=== PATIENT | male | born 1940 | race Caucasian/White ===

== ENCOUNTER 2018-03-09 10:51 | Emergency (ER) | payer MEDICARE ==
[2018-03-09 10:51] VITALS: BMI 28.3
[2018-03-09 10:57] VITALS: O2SAT 98
[2018-03-09] MEDS ORDERED: Dexamethasone 4 mg/1 ml IM STA (11:41)
[2018-03-09] MEDS ORDERED: Lidocaine 5% Patch TD STA (11:41)
--- NOTE | 2018-03-09 11:41 | C.PDOC ---
History Of Present Illness 78 y/o male presents to ED with c/o left lower back radiating to left leg for 1 month associated with tingling to left leg. Patient states he has difficulty walking and sitting secondary to pain. Patient had MRI 3 weeks ago that showed Broken discs and saw PMD yesterday, given medication with no improvement. Patient denies bowel/bladder incontinence, abdominal pain, numbness, fever, chills or any other complaints at this time. Time Seen by Provider: 03/09/18 11:23 Chief Complaint (Nursing): Back Pain History Per: Patient, Family History/Exam Limitations: no limitations Onset/Duration Of Symptoms: Days Current Symptoms Are (Timing): Still Present Quality Of Discomfort: "Pain" Past Medical History Reviewed: Historical Data, Nursing Documentation, Vital Signs Vital Signs: Last Vital Signs Temp 97.9 F 03/09/18 10:55 Pulse 90 03/09/18 10:55 Resp 16 03/09/18 10:55 BP 155/86 H 03/09/18 10:55 Pulse Ox 98 03/09/18 11:48 - Medical History PMH: Benign Prostatic Hyperplasia, HTN, Hypercholesterolemia, Kidney Stones, Chronic Kidney Disease Surgical History: Endoscopy - [facility] Procedures CLOSED ENDOSCOPIC BIOPSY OF LARGE INTESTINE (12/27/13) ESOPHAGOGASTRODUODENOSCOPY [EGD] W/CLOSED BIOPSY (12/27/13) Family History: States: No Known Family Hx - Social History Hx Tobacco Use: No Hx Alcohol Use: No Hx Substance Use: No - Immunization History Hx Tetanus Toxoid Vaccination: No Hx Influenza Vaccination: No Hx Pneumococcal Vaccination: No Review Of Systems Gastrointestinal: Negative for: Nausea, Vomiting, Abdominal Pain Genitourinary: Negative for: Dysuria, Incontinence, Hematuria Musculoskeletal: Positive for: Back Pain Skin: Negative for: Rash Neurological: Negative for: Weakness, Numbness Physical Exam - Physical Exam Appears: Non-toxic, No Acute Distress Skin: Warm, Dry, No Rash Head: Atraumatic, Normacephalic Eye(s): bilateral: Normal Inspection Oral Mucosa: Moist Neck: Supple Gastrointestinal/Abdominal: Soft, No Tenderness, No Guarding, No Rebound Back: No CVA Tenderness, Straight Leg Raising (at 45 degrees), Other (left side paralumbar tenderness) Extremity: Normal ROM, Capillary Refill (<2 seconds) Neurological/Psych: Oriented x3, Normal Motor, Normal Sensation ED Course And Treatment O2 Sat by Pulse Oximetry: 98 (RA) Pulse Ox Interpretation: Normal Disposition - Disposition Referrals: Gonzalo Garcia MD [Staff Provider] - Disposition: HOME/ ROUTINE Disposition Time: 12:44 Condition: STABLE Additional Instructions: Follow up with the medical doctor within 1-2 days. Return if worsened. Prescriptions: Cyclobenzaprine [Flexeril] 5 mg PO TID #21 tab Lidocaine 5% [Lidoderm] 1 each TP DAILY #10 patch Naproxen 375 mg PO BID #20 tablet Instructions: Sciatica Forms: [employer] (Norwegian) Print Language: [place] RICAN - Clinical Impression Clinical Impression: Sciatica - PA / [employer] / Resident Statement MD/DO has reviewed & agrees with the documentation as recorded. - Scribe Statement The provider has reviewed the documentation as recorded by the Christianibmaria e Jones All medical record entries made by the Christianibmaria e were at my direction and personally dictated by me. I have reviewed the chart and agree that the record accurately reflects my personal performance of the history, physical exam, medical decision making, and the department course for this patient. I have also personally directed, reviewed, and agree with the discharge instructions and disposition.
[2018-03-09] MEDS ORDERED: Dexamethasone 4 mg/1 ml ONE (12:00)
[2018-03-09] MEDS ORDERED: Lidocaine 5% Patch TD ONE (12:01)
[2018-03-09 13:04] VITALS: BP 114/68; PULSE 84; RESP 18; TEMP 98.2
== END 2018-03-09 13:00 | disposition home or self-care (01) ==
LOC: C.ER 10:51
DX: M54.30 Sciatica, unspecified side (principal)
CPT/HCPCS: 96372; 99284; J1100; J1885

== ENCOUNTER 2018-12-15 05:42 | Inpatient (IN) | payer MEDICARE ==
[2018-12-15 05:43] VITALS: BMI 28.3
[2018-12-15 06:46] LABS: BASO % 0.7 % (0.0-2.0); EOS # 0.1 K/uL (0.0-0.7); HEMOGLOBIN 14.7 g/dL (12.0-18.0); LYMPH # 1.2 K/uL (1.0-4.3); LYMPH % 32.5 % (20.0-40.0); MEAN CORPUSCULAR HEMOGLOBIN 29.5 pg (27.0-31.0); MEAN CORPUSCULAR HGB CONC 33.2 g/dL (33.0-37.0); MEAN PLATELET VOLUME 10.3 fL (7.2-11.7); MONO # 0.4 K/uL (0.0-0.8); MONO % 11.6 % (0.0-10.0); NEUT # 1.9 K/uL (1.8-7.0); NEUT % 53.2 % (50.0-75.0); NRBC % 0.1 % (0.0-2.0); RBC 4.99 Mil/uL (4.40-5.90); RED CELL DISTRIBUTION WIDTH 14.7 % (11.5-14.5); WHITE BLOOD COUNT 3.7 K/uL (4.8-10.8)
--- NOTE | 2018-12-15 06:47 | C.PDOC ---
History Of Present Illness Patient presents to ED c/o mild epigastric pain and 3 episodes of bloody stools that began overnight. Initial BM was dark, but then subsquent BMs were bright red. Patient denies prior rectal bleeding or h/o stomach/intestinal problems. He also denies chest pain, SOB, palpitations, fever, dysuria/hematuria, nausea/vomiting. Patient also denies use of pepto bismol, iron. Time Seen by Provider: 12/15/18 05:48 Chief Complaint (Nursing): GI Problem History Per: Patient, Family History/Exam Limitations: no limitations Severity: Mild Past Medical History Reviewed: Historical Data, Nursing Documentation, Vital Signs Vital Signs: Last Vital Signs Temp 97.7 F 12/15/18 05:49 Pulse 85 12/15/18 05:49 Resp 20 12/15/18 05:49 BP 173/89 H 12/15/18 05:49 Pulse Ox 98 12/15/18 05:49 Primary Care Provider: Gonzalo Garcia - Medical History PMH: Benign Prostatic Hyperplasia, HTN, Hypercholesterolemia, Kidney Stones, Chronic Kidney Disease Surgical History: Endoscopy - [facility] Procedures CLOSED ENDOSCOPIC BIOPSY OF LARGE INTESTINE (12/27/13) ESOPHAGOGASTRODUODENOSCOPY [EGD] W/CLOSED BIOPSY (12/27/13) Family History: States: No Known Family Hx - Social History Hx Tobacco Use: No Hx Alcohol Use: No Hx Substance Use: No - Immunization History Hx Tetanus Toxoid Vaccination: No Hx Influenza Vaccination: No Hx Pneumococcal Vaccination: No Review Of Systems Constitutional: Negative for: Fever, Chills Cardiovascular: Negative for: Chest Pain, Palpitations Respiratory: Negative for: Shortness of Breath Gastrointestinal: Positive for: Abdominal Pain, Melena, Hematochezia. Negative for: Nausea, Vomiting, Diarrhea Genitourinary: Negative for: Dysuria Skin: Negative for: Rash Physical Exam - Physical Exam Appears: Well, Non-toxic, No Acute Distress Skin: Normal Color, Warm, Dry, No Pale, No Rash Head: Normacephalic Oral Mucosa: Moist Cardiovascular: Rhythm Regular Respiratory: Normal Breath Sounds, No Rales, No Rhonchi, No Wheezing Gastrointestinal/Abdominal: Normal Exam, Bowel Sounds, Soft, No Tenderness Rectal: Rectal Tone, Blood Streaked Stool, No Hemorrhoids, No Mass, No Tenderness Extremity: Normal ROM, No Deformity Neurological/Psych: Oriented x3, Normal Speech, Normal Cognition ED Course And Treatment - Laboratory Results Result Diagrams: 12/15/18 06:37 ECG: Interpreted By Me, Viewed By Me (NSR 86 bpm, normal axis, no acute ST/T wave changes) ECG Interpretation: No Acute Changes O2 Sat by Pulse Oximetry: 98 (RA) Pulse Ox Interpretation: Normal Progress Note: Blood work ordered and reviewed. Patient given IV protonix. Disposition - Disposition Disposition Time: 07:00 Condition: STABLE Forms: [employer] (Bengali) - Clinical Impression Clinical Impression: Rectal bleeding, Epigastric abdominal pain Physician Patient Turnover Patient Signed Over To: Delmy Rosa Handoff Comments: blood work, SFOB, reassessment
[2018-12-15 06:49] LABS: PARTIAL THROMBOPLASTIN TIME 31.5 SECONDS (21-34); PROTHROMBIN TIME 10.6 SECONDS (9.7-12.2)
[2018-12-15] MEDS ORDERED: Sodium Chloride 0.9% 500 ML IV ONE (06:54)
[2018-12-15 07:07] LABS: ALB/GLOB RATIO 1.5 (1.0-2.1); ALBUMIN 4.2 g/dL (3.5-5.0); ALT/SGPT 35 U/L (21-72); AST/SGOT 27 U/L (17-59); BLOOD UREA NITROGEN 12 mg/dL (9-20); CALCIUM 9.4 mg/dl (8.6-10.4); GFR NON-AFRICAN AMERICAN > 60; LIPASE 189 U/L (23-300)
[2018-12-15] MEDS ORDERED: Sodium Chloride 0.9% 1,000 ML ONE (07:18)
[2018-12-15] MEDS ORDERED: Pneumococcal 23-Valent Vaccine IM ONE (13:08)
[2018-12-15] MEDS: (Novolin R) Insulin Human Regular 100 units/ml vial SC SCH ×2 (17:43→21:28)
[2018-12-15] MEDS ORDERED: Lidocaine 5% Patch TD PRN (18:04)
[2018-12-15 18:54] LABS: HEMOGLOBIN 13.3 g/dL (12.0-18.0); MEAN CELL VOLUME 87.3 fL (80.0-94.0); MEAN CORPUSCULAR HEMOGLOBIN 29.3 pg (27.0-31.0); MEAN CORPUSCULAR HGB CONC 33.6 g/dL (33.0-37.0); MEAN PLATELET VOLUME 9.8 fL (7.2-11.7); RBC 4.52 Mil/uL (4.40-5.90); RED CELL DISTRIBUTION WIDTH 14.8 % (11.5-14.5); WHITE BLOOD COUNT 4.5 K/uL (4.8-10.8)
[2018-12-15] MEDS: Rosuvastatin Calcium 2.5 mg Tab PO SCH (22:14)
[2018-12-15] MEDS: Oxycodone/Acetaminophen 5/325 mg Tab PO SCH (22:18)
--- NOTE | 2018-12-15 22:29 | CP.PCM.HP ---
Present on Admission - Present on Admission Any Indicators Present on Admission: No Past Patient History - Past Medical History & Family History Past Medical History?: Yes - Past Social History Smoking Status: Never Smoked - CARDIAC Hx Hypercholesterolemia: Yes Hx Hypertension: Yes - PULMONARY Hx Respiratory Disorders: No - NEUROLOGICAL Hx Neurological Disorder: No - HEENT Hx HEENT Problems: No - RENAL Hx Chronic Kidney Disease: Yes Hx Kidney Stones: Yes - ENDOCRINE/METABOLIC Hx Endocrine Disorders: Yes Hx Diabetes Mellitus Type 2: Yes - HEMATOLOGICAL/ONCOLOGICAL Hx Blood Disorders: No - INTEGUMENTARY Hx Dermatological Problems: No - MUSCULOSKELETAL/RHEUMATOLOGICAL Hx Falls: No - GASTROINTESTINAL Hx Gastrointestinal Disorders: Yes Hx Gastroesophageal Reflux: Yes (HEARTBURN) - GENITOURINARY/GYNECOLOGICAL Hx Genitourinary Disorders: Yes Other/Comment: ENLARGED PROSTATE - PSYCHIATRIC Hx Substance Use: No - SURGICAL HISTORY Other/Comment: prostate surgery x2 - ANESTHESIA Hx Anesthesia: Yes Hx Anesthesia Reactions: No Hx Malignant Hyperthermia: No Meds Allergies/Adverse Reactions: Allergies Allergy/AdvReac Type Severity Reaction Status Date / Time No Known Allergies Allergy Verified 12/15/18 05:57 Results - Vital Signs Recent Vital Signs: Last Vital Signs Temp 97.9 F 12/15/18 15:00 Pulse 76 12/15/18 15:00 Resp 20 12/15/18 15:00 BP 123/69 12/15/18 15:00 Pulse Ox 97 12/15/18 15:00 - Labs Result Diagrams: 12/15/18 18:51 12/15/18 06:37 Labs: Laboratory Results - last 24 hr 12/15/18 12/15/18 12/15/18 06:37 06:37 06:37 WBC 3.7 L D RBC 4.99 Hgb 14.7 Hct 44.4 MCV 89.0 MCH 29.5 MCHC 33.2 RDW 14.7 H Plt Count 232 MPV 10.3 Neut % (Auto) 53.2 Lymph % (Auto) 32.5 [place] % (Auto) 11.6 H Eos % (Auto) 2.0 Baso % (Auto) 0.7 Neut # (Auto) 1.9 Lymph # (Auto) 1.2 [place] # (Auto) 0.4 Eos # (Auto) 0.1 Baso # (Auto) 0.0 PT 10.6 INR 1.0 APTT 31.5 Sodium 137 Potassium 3.8 Chloride 101 Carbon Dioxide 28 Anion Gap 11 BUN 12 Creatinine 0.6 L Est GFR ( Amer) > 60 Est GFR (Non-Af Amer) > 60 POC Glucose (mg/dL) Random Glucose 137 H Calcium 9.4 Total Bilirubin 0.7 AST 27 ALT 35 Alkaline Phosphatase 71 Total Protein 6.9 Albumin 4.2 Globulin 2.7 Albumin/Globulin Ratio 1.5 Lipase 189 Carcinoembryonic Ag 1.9 Stool Occult Blood Blood Type Antibody Screen 12/15/18 12/15/18 12/15/18 06:37 07:22 15:54 WBC RBC Hgb Hct MCV MCH MCHC RDW Plt Count MPV Neut % (Auto) Lymph % (Auto) [place] % (Auto) Eos % (Auto) Baso % (Auto) Neut # (Auto) Lymph # (Auto) [place] # (Auto) Eos # (Auto) Baso # (Auto) PT INR APTT Sodium Potassium Chloride Carbon Dioxide Anion Gap BUN Creatinine Est GFR ( Amer) Est GFR (Non-Af Amer) POC Glucose (mg/dL) 280 H Random Glucose Calcium Total Bilirubin AST ALT Alkaline Phosphatase Total Protein Albumin Globulin Albumin/Globulin Ratio Lipase Carcinoembryonic Ag Stool Occult Blood Positive H Blood Type O POSITIVE Antibody Screen Negative 12/15/18 12/15/18 18:51 21:19 WBC 4.5 L RBC 4.52 Hgb 13.3 Hct 39.4 MCV 87.3 MCH 29.3 MCHC 33.6 RDW 14.8 H Plt Count 217 MPV 9.8 Neut % (Auto) Lymph % (Auto) [place] % (Auto) Eos % (Auto) Baso % (Auto) Neut # (Auto) Lymph # (Auto) [place] # (Auto) Eos # (Auto) Baso # (Auto) PT INR APTT Sodium Potassium Chloride Carbon Dioxide Anion Gap BUN Creatinine Est GFR ( Amer) Est GFR (Non-Af Amer) POC Glucose (mg/dL) 86 Random Glucose Calcium Total Bilirubin AST ALT Alkaline Phosphatase Total Protein Albumin Globulin Albumin/Globulin Ratio Lipase Carcinoembryonic Ag Stool Occult Blood Blood Type Antibody Screen
[2018-12-16] MEDS: Oxycodone/Acetaminophen 5/325 mg Tab PO SCH ×3 (07:14→21:44)
[2018-12-16] MEDS: (Novolin R) Insulin Human Regular 100 units/ml vial SC SCH ×4 (07:48→21:33)
[2018-12-16] MEDS ORDERED: Lactated Ringer's 1,000 ML IV ONE (09:54)
[2018-12-16] MEDS ORDERED: Etomidate 20 mg/10ml Inj IV ONE ×2 (09:58→10:02)
[2018-12-16] MEDS: Lidocaine 5% Patch TD SCH (10:20)
--- NOTE | 2018-12-16 11:16 | HP ---
CHIEF COMPLAINT: Epigastric pain. HISTORY OF PRESENT ILLNESS: This is a 78-year-old male well known to me with history of type 2 diabetes, hypertension, hyperlipidemia. He also had history of lumbar disk disease. He came in because of abdominal pain, nausea, vomiting, and bleeding per rectum, which is bright red blood. He has perianal itching and pain and irritation. He has nausea. He has epigastric discomfort. He denies any diarrhea. He denied any constipation. He denied any fever, chills, or rigors. He denies any dysuria, hematuria, or polyuria. He denies any polyuria, polydipsia, and polyphagia. He denies any cough, sore throat, runny nose. He is on baby aspirin. He is on . He denies any joint pain. He has back pain. He has tingling and numbness in the legs. There is no history of skin rash, itchy eyes, or itchy nose. He denies any history of sneezing. The patient's fecal occult blood was positive in the emergency room and the patient was hospitalized. CURRENT MEDICATIONS: Omeprazole, Lidoderm patches, allopurinol, Lyrica, Zestril, Proscar, , Percocet, Pravachol. SOCIAL HISTORY: Nonsmoker, non-EtOH user. PAST MEDICAL HISTORY: Lumbar disk disease, type 2 diabetes, hypertension, hyperlipidemia. PHYSICAL EXAMINATION: GENERAL: An elderly male in no acute distress. Pleasant mood. VITAL SIGNS: Blood pressure 119/71, pulse 82, respiratory rate 12, temperature 97.9. SKIN: No rashes. No bruises. No purpura. No petechiae. No ecchymosis. HEENT: Atraumatic and normocephalic. Negative pallor. Negative jaundice. Extraocular movements are intact. NECK: Supple. No JVD. No lymph node. No thyromegaly. No carotid bruit. CHEST WALL: Bilaterally symmetrical expansion. No tenderness. No deformity. LUNGS: Clear. No rales. No rhonchi. CARDIOVASCULAR SYSTEM: PMI not localized. S1 and S2, regular. No heave, no thrill. ABDOMEN: Soft and nontender. Bowel sounds are positive. RECTAL: No masses. Positive occult blood. EXTREMITIES: No clubbing,cyanosis, or edema. CENTRAL NERVOUS SYSTEM: Awake, alert, and oriented x3. Cranial nerves II through XII are normal. Power is 5/5 x4. Plantars are downgoing. ASSESSMENT: 1. Gastrointestinal bleed, most likely it is a lower gastrointestinal bleeding with bright red blood per rectum, which is in smaller amount, could be colon polyp versus angiodysplasia versus small bowel ulcers versus hemorrhoids. 2. Hypertension. 3. Type 2 diabetes. 4. Lumbar disk disease. PLAN: Admit. CBC and GI evaluation. Monitor patient. Gonzalo Garcia MD
[2018-12-16] MEDS ORDERED: Peg-Electrolyte Oral Soln 4L (Golytely) PO ONE (13:00)
[2018-12-16] MEDS ORDERED: Bisacodyl 5mg EC Tab PO ONE (17:00)
[2018-12-16] MEDS: Rosuvastatin Calcium 2.5 mg Tab PO SCH (22:22)
--- NOTE | 2018-12-16 22:50 | CP.PCM.PN ---
Subjective - Date & Time of Evaluation Date of Evaluation: 12/16/18 Time of Evaluation: 10:40 - Subjective Subjective: dict Objective - Vital Signs/Intake and Output Vital Signs (last 24 hours): Temp Pulse Resp BP Pulse Ox 97.9 F 73 20 109/69 96 12/16/18 15:00 12/16/18 15:00 12/16/18 15:00 12/16/18 15:00 12/16/18 15:00 - Medications Medications: Current Medications Allopurinol (Zyloprim) 300 mg PO DAILY [facility] Last Admin: 12/16/18 11:50 Dose: 300 mg Finasteride (Proscar) 5 mg PO DAILY [facility] Last Admin: 12/16/18 11:51 Dose: 5 mg Insulin Human Regular (Novolin R) 0 unit SC [facility]; Protocol Last Admin: 12/16/18 21:33 Dose: Not Given Lidocaine (Lidoderm) 1 ea TD DAILY [facility] Last Admin: 12/16/18 10:20 Dose: Not Given Lisinopril (Zestril) 40 mg PO DAILY [facility] Last Admin: 12/16/18 11:51 Dose: 40 mg Metoclopramide HCl (Reglan) 5 mg IVP Q6H [facility] Stop: 12/19/18 11:01 Last Admin: 12/16/18 22:22 Dose: 5 mg Oxycodone/Acetaminophen (Percocet 5/325 Mg Tab) 1 tab PO Q8 [facility] Stop: 12/18/18 22:01 Last Admin: 12/16/18 21:44 Dose: Not Given Pantoprazole Sodium (Protonix Inj) 40 mg IVP DAILY [facility] Last Admin: 12/16/18 11:52 Dose: 40 mg Pneumococcal Polyvalent Vaccine (Pneumovax 23 Vaccine) 0.5 ml IM .ONCE ONE Stop: 12/17/18 10:01 Pregabalin (Lyrica) 50 mg PO HS [facility] Last Admin: 12/16/18 21:44 Dose: Not Given Rosuvastatin Calcium (Crestor) 2.5 mg PO HS [facility] Last Admin: 12/16/18 22:22 Dose: 2.5 mg - Labs Labs: 12/15/18 18:51 12/15/18 06:37 PT 10.6 SECONDS (9.7-12.2) 12/15/18 06:37 INR 1.0 12/15/18 06:37 APTT 31.5 SECONDS (21-34) 12/15/18 06:37
--- NOTE | 2018-12-17 02:40 | PN ---
DATE: 12/16/2018 SUBJECTIVE: The patient is status post EGD. The patient is feeling better. The patient is afebrile. No shortness of breath. He has bright red blood per rectum. Endoscopy report is consistent with moderate inflammation in the stomach, medium sized hiatal hernia, and the patient has mucosal breaks. The patient is not nauseous. He denies any fever, chills, or rigor. He is for colonoscopy. He is on [place]. PHYSICAL EXAMINATION: VITAL SIGNS: Blood pressure 143/83, pulse 73, respiratory rate 20, and temperature 97.9. LUNGS: Clear. CARDIOVASCULAR SYSTEM: S1 and S2, regular. ABDOMEN: Soft. ASSESSMENT: Gastrointestinal bleed, most likely it is gastritis versus hemorrhoids. PLAN: Colonoscopy in a.m. Monitor the patient. Gonzalo Garcia MD
[2018-12-17] MEDS ORDERED: Bisacodyl 5mg EC Tab PO ONE (06:00)
[2018-12-17] MEDS: Oxycodone/Acetaminophen 5/325 mg Tab PO SCH (06:00)
[2018-12-17 07:40] LABS: BASO % 1.1 % (0.0-2.0); EOS % 1.3 % (0.0-4.0); HEMOGLOBIN 13.3 g/dL (12.0-18.0); LYMPH # 0.9 K/uL (1.0-4.3); LYMPH % 37.5 % (20.0-40.0); MEAN CELL VOLUME 87.4 fL (80.0-94.0); MEAN CORPUSCULAR HEMOGLOBIN 30.3 pg (27.0-31.0); MEAN CORPUSCULAR HGB CONC 34.7 g/dL (33.0-37.0); MEAN PLATELET VOLUME 10.4 fL (7.2-11.7); MONO # 0.3 K/uL (0.0-0.8); MONO % 10.9 % (0.0-10.0); NEUT # 1.2 K/uL (1.8-7.0); NEUT % 49.2 % (50.0-75.0); NRBC % 0.1 % (0.0-2.0); RBC 4.39 Mil/uL (4.40-5.90); RED CELL DISTRIBUTION WIDTH 14.2 % (11.5-14.5); WHITE BLOOD COUNT 2.5 K/uL (4.8-10.8)
[2018-12-17 08:05] LABS: BLOOD UREA NITROGEN 10 mg/dL (9-20); GFR NON-AFRICAN AMERICAN > 60; LIPASE 72 U/L (23-300)
[2018-12-17] MEDS: (Novolin R) Insulin Human Regular 100 units/ml vial SC SCH ×2 (08:18→12:22)
[2018-12-17] MEDS ORDERED: Pneumococcal 23-Valent Vaccine IM ONE (10:00)
[2018-12-17] MEDS: Lidocaine 5% Patch TD SCH (10:23)
[2018-12-17] MEDS ORDERED: Lactated Ringer's 500 ML IV ONE (10:47)
[2018-12-17] MEDS ORDERED: Propofol 10 mg/ml Inj (20 ML) ONE (10:55)
[2018-12-17] MEDS ORDERED: Lidocaine Hydrochloride 5 ML INJ ONE (10:55)
[2018-12-17] MEDS ORDERED: Belladonna-Phenobarbital PO ONE ×2 (11:15→12:00)
[2018-12-17 11:25] VITALS: TEMP 97.3
[2018-12-17 11:49] VITALS: BP 132/72; PULSE 89; RESP 16; O2SAT 98
--- NOTE | 2018-12-17 16:18 | CP.PCM.PN ---
Subjective - Date & Time of Evaluation Date of Evaluation: 12/17/18 Time of Evaluation: 16:18 - Subjective Subjective: Alert and orientedx3, denies sob or chest pains, no active bleeding. Objective - Vital Signs/Intake and Output Vital Signs (last 24 hours): Temp Pulse Resp BP Pulse Ox 97.3 F L 89 16 132/72 98 12/17/18 11:06 12/17/18 11:36 12/17/18 11:36 12/17/18 11:36 12/17/18 11:36 Intake and Output: 12/17/18 12/17/18 06:59 18:59 Intake Total 550 360 Balance 550 360 - Labs Labs: 12/17/18 07:29 12/17/18 07:29 PT 10.6 SECONDS (9.7-12.2) 12/15/18 06:37 INR 1.0 12/15/18 06:37 APTT 31.5 SECONDS (21-34) 12/15/18 06:37 Assessment and Plan - Assessment and Plan (Free Text) Assessment: Patient admitted with GI bleed, post colonoscopy today, seen and examined. Alert, ambulatory, tolerating diet. No active bleeding per colonoscopy report. Discussed with DR Garcia, plan to discharge home today. Advised high fiber diet and follow up with PMD in 1 week.
--- NOTE | 2018-12-18 05:25 | CP.PCM.DIS ---
Provider - Provider Date of Admission: 12/15/18 08:52 Attending physician: Gonzalo Garcia MD Consults: 12/15/18 08:49 Gastroenterology Consult Stat Comment: Consulting Provider: Shadia Trammell Consulting Physician: Shadia Trammell Reason for Consult: rectal bleeding Time Spent in preparation of Discharge (in minutes): 30 Hospital Course - Lab Results Lab Results: Most Recent Lab Values WBC 2.5 K/uL (4.8-10.8) L 12/17/18 07:29 RBC 4.39 Mil/uL (4.40-5.90) L 12/17/18 07:29 Hgb 13.3 g/dL (12.0-18.0) 12/17/18 07: Hct 38.3 % (35.0-51.0) 12/17/18 07: MCV 87.4 fL (80.0-94.0) 12/17/18 07: MCH 30.3 pg (27.0-31.0) 12/17/18 07: MCHC 34.7 g/dL (33.0-37.0) 12/17/18 07:29 RDW 14.2 % (11.5-14.5) 12/17/18 07: Plt Count 227 K/uL (130-400) 12/17/18 07:29 MPV 10.4 fL (7.2-11.7) 12/17/18 07:29 Neut % (Auto) 49.2 % (50.0-75.0) L 12/17/18 07: Lymph % (Auto) 37.5 % (20.0-40.0) 12/17/18 07: [place] % (Auto) 10.9 % (0.0-10.0) H 12/17/18 07: Eos % (Auto) 1.3 % (0.0-4.0) 12/17/18 07: Baso % (Auto) 1.1 % (0.0-2.0) 12/17/18 07:29 Neut # (Auto) 1.2 K/uL (1.8-7.0) L 12/17/18 07: Lymph # (Auto) 0.9 K/uL (1.0-4.3) L 12/17/18 07:29 [place] # (Auto) 0.3 K/uL (0.0-0.8) 12/17/18 07:29 Eos # (Auto) 0.0 K/uL (0.0-0.7) 12/17/18 07:29 Baso # (Auto) 0.0 K/uL (0.0-0.2) 12/17/18 07:29 PT 10.6 SECONDS (9.7-12.2) 12/15/18 06:37 INR 1.0 12/15/18 06:37 APTT 31.5 SECONDS (21-34) 12/15/18 06:37 Sodium 135 mmol/L (132-148) 12/17/18 07:29 Potassium 3.9 mmol/L (3.6-5.2) 12/17/18 07:29 Chloride 100 mmol/L (98-107) 12/17/18 07:29 Carbon Dioxide 26 mmol/L (22-30) 12/17/18 07:29 Anion Gap 13 (10-20) 12/17/18 07:29 BUN 10 mg/dL (9-20) 12/17/18 07:29 Creatinine 0.8 mg/dL (0.8-1.5) 12/17/18 07:29 Est GFR ( Amer) > 60 12/17/18 07:29 Est GFR (Non-Af Amer) > 60 12/17/18 07:29 POC Glucose (mg/dL) 157 mg/dL (65-110) H 12/17/18 12:01 Random Glucose 132 mg/dL (75-110) H 12/17/18 07:29 Calcium 9.0 mg/dl (8.6-10.4) 12/17/18 07:29 Total Bilirubin 0.7 mg/dL (0.2-1.3) 12/15/18 06:37 AST 27 U/L (17-59) 12/15/18 06:37 ALT 35 U/L (21-72) 12/15/18 06:37 Alkaline Phosphatase 71 U/L (38-126) 12/15/18 06:37 Total Protein 6.9 g/dL (6.3-8.3) 12/15/18 06:37 Albumin 4.2 g/dL (3.5-5.0) 12/15/18 06:37 Globulin 2.7 gm/dL (2.2-3.9) 12/15/18 06:37 Albumin/Globulin Ratio 1.5 (1.0-2.1) 12/15/18 06:37 Lipase 72 U/L (23-300) 12/17/18 07:29 Carcinoembryonic Ag 1.9 ng/mL (0-3.0) 12/15/18 06:37 Stool Occult Blood Positive (NEGATIVE) H 12/15/18 07:22 Blood Type O POSITIVE 12/15/18 06:37 Antibody Screen Negative 12/15/18 06:37 Discharge Plan - Discharge Medications Prescriptions: Hydrocortisone 2.5% (Rectal) [Anusol-HC] [address] DAILY #1 tube Psyllium Husk [Metamucil] 425 gm PO DAILY 30 Days powder - Follow Up Plan Condition: STABLE Disposition: HOME/ ROUTINE Instructions: Gastrointestinal Bleeding (DC), Psyllium Referrals: Gonzalo Garcia MD [Staff Provider] -
--- NOTE | 2018-12-18 12:27 | CARD ---
APPROVED REPORT Date of service: 12/15/2018 EKG Measurement Heart [id number] <Conclusion> Normal sinus rhythm Poor R wave progression Abnormal ECG
--- NOTE | 2018-12-19 06:04 | CON ---
DATE: 12/15/[address] Lemon to Dr. Gonzalo Garcia. I was called for emergent GI consultation by the admitting MD as well as ER staff. The patient is seen and fully examined in the emergency room on 12/15/2018 for GI consultation and the case discussed immediately after my GI consultation with the ER staff as well as Dr. Garcia on 12/15/2018 as well as with the patient and son at bedside in the emergency room. The entire chart is reviewed including but not limited to the most recent lab and radiology study results, current and the previous medication list, current and the previous medical events, allergy to medication list. This is a 78-year-old male admitted to the hospital through the emergency room due to recurrent complaint of rectal bleeding of fresh blood and traces of black tarry stools before with generalized weakness and malaise with recurrent bloody bowel movement associated with midepigastric pain as well as generalized crampy abdominal pain with loss of appetite, generalized weakness and malaise. No actual chest pain, palpitation, significant shortness of breath, or chills or fever. After being admitted to the hospital, it was found that the patient had subsequent drop of hemoglobin and hematocrit than before but with stable vital signs. In record, the patient before had colonoscopy several months ago indicative of diverticulosis with past medical history of peptic ulcer disease. FAMILY HISTORY: Noncontributory. SOCIAL HISTORY: No reported recent history of cigarette smoking or alcohol intake. ALLERGIES: ALLERGY TO MEDICATION LIST REVIEWED. CURRENT MEDICATIONS: Postadmission medication list reviewed. PHYSICAL EXAMINATION: GENERAL: A 78-year-old male, appears to be awake, alert, oriented. VITAL SIGNS: Stable at the time seen by me. HEENT: Showed pale, dry oral mucous membrane. Nonicteric sclerae. LYMPH NODE: No lymphadenitis or lymphadenopathy. LUNGS: Few scattered crepitation. Decreased air entry at bases. HEART: Positive S1 and S2. ABDOMEN: Soft with midepigastric as well as right and left lower quadrant tenderness. No mass or organomegaly. No rebound tenderness or guarding. RECTAL: Positive for black tarry stools associated with trace of fresh blood. EXTREMITIES: Without significant clubbing or cyanosis but mild lower extremity edematous changes. NEUROLOGIC: No reported new neurological deficits, sensory or motor. No reported focal deficits. IMPRESSION: 1. Gastrointestinal bleeding, upper versus lower. 2. Multiple past medical history including but not limited to peptic ulcer disease, diverticulosis with diverticulitis before. 3. Hypertension with hyperlipidemia. SUGGESTIONS: 1. Continue current management. 2. Antireflux measures. 3. Proton pump inhibitors. 4. Blood transfusion as needed, keep hemoglobin around 10 g percent. 5. Correct any underlying coagulopathy with fresh frozen plasma or/and vitamin K IV. 6. Endoscopic evaluation of the GI tract when the patient is more stable clinically. 7. Surgical consultation as needed. 8. Cancer markers including a CEA. Thank you for letting me participate in your patient's case management. Further recommendation to follow. Shadia Lemon MD
--- NOTE | 2018-12-20 10:08 | DS ---
DISCHARGE DIAGNOSES: 1. Gastritis with gastrointestinal bleed. 2. Hemorrhoids. 3. Hypertension. 4. Diabetes. HISTORY OF PRESENT ILLNESS: This is a 78-year-old male, came in with bleeding per rectum. The patient was started on proton-pump inhibitors, CBC frequent monitoring, and the patient underwent endoscopy which showed gastritis with erosions and underwent a screening colonoscopy, which showed internal and external hemorrhoids . The patient did well. H and H remained stable. He is for discharge. CONDITION UPON DISCHARGE: Stable. Gonzalo Garcia MD
== END 2018-12-17 13:44 | disposition home or self-care (01) | DRG 379 ==
LOC: C.ER 05:42 → C.9E 08:52 → C.3T 12:10
PROVIDERS: ADMIT Internal Medicine; ATTEND Internal Medicine
PROC: 0DB68ZX Excision of Stomach, Via Natural or Artificial Opening Endoscopic, Diagnostic (ICD-10-PCS; 2018-12-16)
PROC: 0DBM8ZX Excision of Descending Colon, Via Natural or Artificial Opening Endoscopic, Diagnostic (ICD-10-PCS; principal; 2018-12-17 10:52)
DX: K29.71 Gastritis, unspecified, with bleeding (principal); K44.9 Diaphragmatic hernia without obstruction or gangrene; K57.30 Diverticulosis of large intestine without perforation or abscess without bleeding; K21.0 Gastro-esophageal reflux disease with esophagitis; E11.22 Type 2 diabetes mellitus with diabetic chronic kidney disease; E78.00 Pure hypercholesterolemia, unspecified; I12.9 Hypertensive chronic kidney disease with stage 1 through stage 4 chronic kidney disease, or unspecified chronic kidney disease; M51.9 Unspecified thoracic, thoracolumbar and lumbosacral intervertebral disc disorder; N18.9 Chronic kidney disease, unspecified; K64.8 Other hemorrhoids; K64.4 Residual hemorrhoidal skin tags; N40.0 Benign prostatic hyperplasia without lower urinary tract symptoms; Z79.82 Long term (current) use of aspirin; Z79.4 Long term (current) use of insulin